=== PATIENT | male | born 1950 | race Native Hawaiian/Other Pacific Islander ===

== ENCOUNTER 2020-08-23 10:41 | Outpatient (CLI) | payer OTHER | END 2020-08-23 19:55 | disposition home or self-care (01) | LOC: INF 10:41 | PROVIDERS: ATTEND Internal Medicine | DX: Z23 Encounter for immunization (principal) | CPT/HCPCS: 96372 ==

== ENCOUNTER 2020-09-12 10:43 | Outpatient (CLI) | payer OTHER | END 2020-09-12 20:19 | disposition home or self-care (01) | LOC: INF 10:43 | PROVIDERS: ATTEND Internal Medicine | DX: Z23 Encounter for immunization (principal) | CPT/HCPCS: 96372 ==